=== PATIENT | female | born 1955 | race Caucasian/White ===

== ENCOUNTER 2016-09-06 12:30 | Observation (INO) | payer BC ==
--- NOTE | 2016-09-06 17:32 | PREOPERATIVE H&P ---
History of Present Illness (Issac Stapleton M.D.; 09/06/2016 2:15 PM) The patient is a 60 year old female who presents with a complaint of bleeding. The onset of the bleeding has been sudden and has been occurring in a recurrent (had episode about 7 years ago, D&C and polypectomy at that time) pattern for 3 days. The course has been decreasing. The bleeding is described as moderate ( heavy the first day then tapered). The bleeding is described as being located in the vagina. The bleeding was precipitated by nothing (spontaneous). The symptoms have been associated with cramps, while the symptoms have not been associated with hematemesis, hemoptysis, use of anti-coagulants or use of aspirin. The patient has been using herbal remedies, while she denies the use of hormone replacement therapy or Tamoxifen. Previous diagnostic tests have included PAP smear (18 months ago, normal) and biopsy (consistent with recurrent endometrial polyp). Additional reasons for visit: Preop Visit is described as the following: The patient feels well with no complaints. Surgical procedures include: TVH with BSO. The reason for surgery is postmenopausal bleeding (secondary to recurrent endometrial polyp). Date of procedure: (09/12/2016). Planned anesthesia : general anesthesia. Previous problems related to surgery includes: vomiting. Cardiac risk factors include: female gender over age 55. Risk factors for post operative thromboembolism includes: age > 50. In depth conversation with the patient/guardian concerning the procedure, risks, complications, benefits, alternatives and need for further surgery or intervention questions were answered and no guarantees were made. Problem List/Past Medical (Issac Stapleton M.D.; 09/06/2016 2:15 PM) Chronic sinusitis (J32.9) GERD (gastroesophageal reflux disease) (K21.9) Allergies (Issac Stapleton M.D.; 09/06/2016 2:16 PM) Betadine *ANTISEPTICS & DISINFECTANTS* Rash. Codeine/Codeine Derivatives (Tylenol 3, Vicodin, Percocet, Hydrocodone...) Hallucinations, but can take Percocet Scopolamine Base *ANTIEMETICS* Sulfa Drugs (Bactrim, Pediazole, Septra...) Hives. Vancomycin HCl *ANTI-INFECTIVE AGENTS - MISC.* Itching. Family History (Issac Stapleton M.D.; 09/06/2016 2:16 PM) Alcohol Abuse Brother, Maternal Grandfather. Anxiety Disorder Daughter. Asthma Paternal Grandfather. Breast Cancer Paternal Aunt. Cataract Maternal Grandmother. Cerebrovascular Accident Father. Congestive Heart Failure Maternal Grandmother, Maternal Uncle. Depression Daughter. Diabetes Mellitus Type II Maternal Uncle, Paternal Grandfather. Hypertension Brother. Injury brain, traumatic (S06.9X9A) Daughter. Age 12-Ice skating accident Lung Cancer Mother. Lymphoid Leukemia, Acute Maternal Grandfather. Osteoporosis (M81.0) Paternal Grandmother. Peptic Ulcer Disease Paternal Grandfather. Postural orthostatic tachycardia syndrome (R00.0) Daughter. Scoliosis (M41.9) Daughter. Substance Abuse Brother. Social History (Issac Stapleton M.D.; 09/06/2016 2:16 PM) Alcohol use Occasional alcohol use. 1 drink per day Current work status Full-time. Marital status . Ray No Drug Use Number of Children 1. Vaginal 1994 Tobacco use Never smoker. Medication History (Issac Stapleton M.D.; 09/06/2016 2:16 PM) Prevacid (15MG Capsule DR, 1 Oral daily) Active. Pulmicort (0.5MG/2ML Suspension, 2 Inhalation two times daily) Active. (nasal inhalation) Turmeric Curcumin (Oral daily) Active. Multi-Day (1 Oral daily) Active. Ibuprofen (200MG Capsule, Oral as needed) Active. Medications Reconciled / History (Issac Stapleton M.D.; 09/06/2016 2:16 PM) Deliveries (Parity) 1 Delivery Mode vaginal Maternal complications None. Pregnancies () 1 Past Surgical History (Issac Stapleton M.D.; 09/06/2016 2:16 PM) ACHILLES TENDON REPAIR (40220) x2 DECOMPRESSION, SHOULDER, ARTHROSCOPIC (71527) left Dilation and Curettage of Uterus with polypectomy EXCISION, TONSIL, LINGUAL (77489) EXPLORATION, PELVIS, LAPAROSCOPIC (80242) x2 for infertility RELEASE, TENDON, ELBOW (74362) right Review of Systems (Issac Stapleton M.D.; 09/06/2016 2:15 PM) General Not Present- Night Sweats. Skin Not Present- Rash. HEENT Present- Corrective lenses. Neck Not Present- Neck Mass. Respiratory Not Present- Hemoptysis. Breast Not Present- Breast Mass, Breast Pain, Nipple Discharge and Skin Changes. Cardiovascular Not Present- Chest Pain and Decreased Exercise Tolerance. Gastrointestinal Not Present- Abdominal Pain, Bloating, Bloody Stool and Change in Bowel Habits. Female Genitourinary Not Present- Dysuria, Frequency, Hematuria, Incontinence, Urgency, Vaginal Discharge, vaginal dryness, Vaginal itching and Vulvar itching. Musculoskeletal Not Present- Joint Redness. Neurological Not Present- Focal Neurological Symptoms. Psychiatric Not Present- Mood changes. Endocrine Not Present- Hot flashes. Hematology Not Present- DVT, Enlarged Lymph Nodes and Spontaneous Bleeding. Vitals (Kalyn Rivas RN; 09/06/2016 1:50 PM) 09/06/2016 1:49 PM Weight: 165 lb Height: 62in Body Surface Area: 1.76 m Body Mass Index: 30.18 kg/m Temp.: 98.3F Pulse: 83 (Regular) Resp.: 16 (Unlabored) P.OX: 95% ( Room air) BP: 138/78 (Sitting, Left Arm, Standard) Physical Exam (Issac Stapleton M.D.; 09/06/2016 3:48 PM) General General Appearance-Well Appearing. Build & Nutrition-overweight. Integumentary Integumentary General Characteristics Overall examination of the patient's skin reveals - no rashes. Head and Neck Neck Global Assessment - full range of motion, No lymphadenopathy. Thyroid Gland Characteristics - normal size and consistency and no palpable nodules. [facility] Mouth and Throat Oral Cavity/Oropharynx - Oropharynx - no evidence of airway distress observed. Chest and Lung Exam Chest and lung exam reveals -Clear and quiet, even and easy respiratory effort with no use of accessory muscles. Cardiovascular Cardiovascular examination reveals -normal heart sounds, regular rate and rhythm with no murmurs. Abdomen Inspection Inspection of the abdomen reveals - No Hernias. Palpation/Percussion Palpation and Percussion of the abdomen reveal - Non Tender, No hepatosplenomegaly and No Palpable abdominal masses. Other Characteristics - No Costovertebral angle tenderness - Left, No Costovertebral angle tenderness - Right. Female Genitourinary External Genitalia Vulva - Normal. Labia Majora - Normal. Perineum - Intact. Clitoris - Normal. Labia Minora - Normal. Bartholin's Gland - Bilateral - Normal. Urethra - Characteristics - Normal. Urethral Meatus - Characteristics - No Urethral Caruncle. Discharge - None. Othello Gland - Bilateral - Normal. Speculum & Bimanual Vagina - Vaginal Wall - Normal. Vaginal Mucosa - Pale and Relaxation, No Leukorrhea, No Rugae. Cervix - Characteristics - Parous. Uterus - Characteristics - Non Tender. Position - Retroverted. Adnexa - Characteristics - Bilateral - Non Tender, Ovary not enlarged. Masses - No Adnexal Masses. Bladder - Normal. Conference Concierge-present for exam . Peripheral Vascular Lower Extremity Palpation - Tenderness - Bilateral - Non Tender. Edema - Bilateral - No edema. Neuropsychiatric Mental status exam performed with findings of-Oriented X3 with appropriate mood and affect. Lymphatic Axillary Supraclavicular Nodes: Bilateral - Supraclavicular Lymph Nodes - No supraclavicular lymphadenopathy. 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 (09/06/2016 3:49 PM) KRISHD
[2016-09-12] MEDS ORDERED: CEFOXITIN SODIUM 1 GM in NORMAL SALINE MINI-BAG+ 100 ML IV ONE ×3 (06:28→08:46)
[2016-09-12] MEDS: LIDOCAINE HCL 1% 20 ML VIAL SUBCUT ONE ×2 (06:35→19:31)
[2016-09-12] MEDS ORDERED: ACETAMINOPHEN 1,000 MG/100 ML VIAL IV SCH ×2 (06:45→06:53)
[2016-09-12] MEDS ORDERED: METOCLOPRAMIDE HCL 10 MG/2 ML VIAL IV ONE ×2 (06:48→06:53)
[2016-09-12] MEDS ORDERED: MIDAZOLAM HCL 2 MG/2 ML SYR IV ONE ×2 (06:48→06:53)
[2016-09-12] MEDS ORDERED: LIDOCAINE HCL 1% 20 ML VIAL SUBCUT ONE ×2 (06:53→08:46)
[2016-09-12] MEDS ORDERED: METHYLENE BLUE 10 MG/ML VIAL IV ONE (06:58)
[2016-09-12] MEDS ORDERED: FAMOTIDINE IN SALINE, ISO-OSM 20 MG/50 ML PIGGYBACK IV SCH (07:00)
[2016-09-12] MEDS ORDERED: LACTATED RINGERS 1,000 ML IV SCH ×5 (07:00→09:00)
[2016-09-12] MEDS ORDERED: MIDAZOLAM HCL 2 MG/2 ML VIAL ONE (07:02)
[2016-09-12] MEDS ORDERED: CEFOXITIN SODIUM 1 GM/10 ML VIAL ONE (07:03)
[2016-09-12] MEDS ORDERED: LIDOCAINE HCL 1% 20 ML VIAL ONE (07:18)
[2016-09-12] MEDS ORDERED: FENTANYL 100 MCG/2 ML VIAL ONE (07:18)
[2016-09-12] MEDS ORDERED: ROCURONIUM BROMIDE 50 MG/5 ML VIAL IV ONE (07:18)
[2016-09-12] MEDS ORDERED: SUCCINYLCHOLINE CHLORIDE 200 MG/10 ML VIAL ONE (07:18)
[2016-09-12] MEDS ORDERED: MORPHINE SULFATE/PF 10 MG/10 ML VIAL ONE (07:19)
[2016-09-12] MEDS ORDERED: ONDANSETRON HCL 4 MG/2 ML VIAL IV PRN ×3 (08:42→09:31)
[2016-09-12] MEDS ORDERED: FENTANYL 100 MCG/2 ML VIAL IV PRN ×2 (08:42→08:46)
[2016-09-12] MEDS ORDERED: MORPHINE SULFATE 10 MG/ML SYR IV PRN ×2 (08:42→08:46)
[2016-09-12] MEDS ORDERED: NALOXONE HCL 0.4 MG/ML VIAL IV PRN ×12 (08:42→09:31)
[2016-09-12] MEDS ORDERED: DIPHENHYDRAMINE 25 MG CAPSULE PO PRN ×4 (08:42→09:31)
[2016-09-12] MEDS ORDERED: DIPHENHYDRAMINE 50 MG/ML VIAL IV PRN ×4 (08:42→09:31)
[2016-09-12] MEDS ORDERED: NALBUPHINE HCL 10 MG/ML AMP IV PRN ×5 (08:42→09:31)
[2016-09-12] MEDS ORDERED: KETOROLAC TROMETHAMINE 30 MG/ML VIAL IV ONE ×2 (08:42→08:46)
[2016-09-12] MEDS ORDERED: DEXAMETHASONE 4 MG/ML VIAL ONE (08:56)
[2016-09-12] MEDS ORDERED: SUGAMMADEX SODIUM 200 MG/2 ML VIAL IV ONE (08:56)
--- NOTE | 2016-09-12 09:05 | PROCEDURE NOTE: GYN ---
HEAD ESTHETICIAN Procedure - Brief Operative Note Date of procedure: 09/12/16 Pre-Op Diagnosis: Endometrial polyp, postmenopausal bleeding Post-op diagnosis: same Procedure: TVH with bilateral salpingectomy Findings: Atrophic ovaries, adherrant to pelvic side doll, normal size uterus. Anesthesia Type: General Estimated Blood Loss: 100 Pathology: sent Sponge and instrument counts: correct Condition: stable Disposition: PACU Narrative: After placement of a spinal narcotic block in the pre-op area the patient is taken to the operating theater and placed supine on the operating table. General endotracheal anesthesia was induced. She is placed in dorsal lithotomy position using Jose stirrups. Vagina and perineum are prepped, her bladder is drained, and then stained with indigo carmine dye. The patient is draped in the usual sterile fashion. The cervix is visualized and grasped with a double- tooth tenaculum. The vagina was incised circumferentially around the cervix. Using sharp and blunt dissection the anterior peritoneal reflection was identified and entered into sharply. A long retractor is then entered into this incision and the bladder is elevated. Posterior cul-de-sac was then entered into sharply and a long weighted retractor is entered into this incision. The uterosacral ligaments on both left and right sides are clamped cut and tied in a Victoriano fashion with 0 Vicryl sutures and tagged. Cardinal ligaments on both left and right sides are then clamped cut and ligated in Victoriano fashion with 0 Vicryl sutures. Uterine vessels on both left and right sides were then clamped cut and ligated in Victoriano fashion with 0 Vicryl sutures. The lower section of the broad ligament on both left and right sides are clamped cut and ligated in Victoriano fashion with 0 Vicryl sutures. Uterus is delivered posteriorly and the utero-ovarian round ligament complex on left right sides are clamped cut and ligated in Victoriano fashion with 0 Vicryl sutures. The uterus and cervix are removed and submitted to pathology. The left fallopian tube was mobilized and then the mesosalpinx is clamped cut and ligated in Victoriano fashion with 0 Vicryl sutures. The fallopian tube is submitted to pathology. The right fallopian tube is mobilized and the right mesosalpinx was clamped cut and ligated in Victoriano fashion with 0 Vicryl sutures. The fallopian tube is submitted to pathology. The posterior vaginal cuff was closed with a running interlocking 0 Vicryl suture. After assuring excellent hemostasis of all vascular pedicles the uterosacral ligament tags were attached to the lateral vaginal cuff, the anterior peritoneal reflection and exited the posterior cuff in the midline. The vaginal cuff is closed with multiple figure of eight 0-Vicryl sutures. The uterosacral ligament tags are tied in the midline with excellent support of the vaginal cuff. A Villa catheter is placed to down drain, the patient placed supine on the operating table, awakened by anesthesia and taken to PACU.
[2016-09-12] MEDS ORDERED: ZOLPIDEM TARTRATE 5 MG TABLET PO PRN (09:31)
[2016-09-12] MEDS ORDERED: SIMETHICONE CHEW 80 MG TABLET PO PRN (09:31)
[2016-09-12] MEDS: KETOROLAC TROMETHAMINE 30 MG/ML VIAL IV PRN ×2 (09:40→10:28)
[2016-09-12] MEDS ORDERED: NORMAL SALINE FLUSH 10 ML ONE (09:45)
[2016-09-12] MEDS ORDERED: NORMAL SALINE FLUSH 40 ML ONE (09:48)
[2016-09-12] MEDS: POTASSIUM CHLORIDE/D5 0.45%NAC 1,000 ML IV SCH ×2 (12:05→19:46)
--- NOTE | 2016-09-12 17:51 | PROGRESS NOTE: GYN Post-op ---
Assessment and Plan - Date of Encounter Date of Encounter: 09/12/16 (1) S/P gynecological surgery, follow-up exam Problem details: S/P TVH Status: Acute Assessment and plan: Plan routine care. 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 Post-op Day: 0 Patient reports: pain well controlled, flatus FOREIGN EXCHANGE SERVICES MANAGER: Post-op Note Objective - Latest Vital Signs and I&O Latest Vital Signs/I&O: Vital Signs Temp 97.3 C H 09/12/16 10:46 Pulse 81 09/12/16 10:46 Resp 16 09/12/16 10:46 BP 136/74 09/12/16 10:46 Pulse Ox 97 09/12/16 10:46 Intake & Output 09/11/16 09/12/16 09/12/16 17:59 05:59 17:59 Intake Total 150 Balance 150 Weight 72.575 kg Intake: IV 50 Right Wrist 50 Oral 100 Other: Urine Color Uretheral (Villa) Indigo - Exam Lungs: Bilateral: normal Heart Rhythm: Present: regular Extremities: Absent: tenderness Abdomen: Present: soft Bowel sounds: present
[2016-09-12] MEDS: DOCUSATE SODIUM 100 MG CAPSULE PO SCH (20:05)
[2016-09-12] MEDS ORDERED: BUDESONIDE 0.5 MG/2 ML NEB INHALATION SCH (21:00)
[2016-09-13] MEDS: POTASSIUM CHLORIDE/D5 0.45%NAC 1,000 ML IV SCH (03:27)
[2016-09-13] MEDS ORDERED: ACETAMINOPHEN 325 MG TABLET PO PRN (03:39)
[2016-09-13 05:03] VITALS: BP 103/54; PULSE 76; RESP 14; TEMP 98.6; O2SAT 96
[2016-09-13 05:56] LABS: BASOPHILS 0.3 % (0.0-2.0); EOSINOPHILS 0.1 % (0.0-6.0); HEMATOCRIT 40.8 % (36.0-48.0); HEMOGLOBIN 13.4 g/dL (12.0-16.0); LYMPHOCYTES 19.4 % (20.0-40.0); LYMPHOCYTES# 2.5 X 10^3uL (0.8-3.8); MEAN CELL VOLUME 88.8 fL (84.0-102.0); MEAN CORPUS. HGB CONCENTRATION 32.9 g/dL (32.0-36.0); MEAN CORPUSCULAR HEMOGLOBIN 29.2 pg (29.0-35.0); MEAN PLATELET VOLUME 9.2 fL (7.4-10.4); MONOCYTES 7.9 % (2.0-10.0); NEUTROPHILS 72.3 % (54.0-75.0); NEUTROPHILS# 9.3 X 10^3uL (2.6-6.7); PLATELET COUNT 281 X 10^3uL (130-440); RED CELL DISTRIBUTION WIDTH 12.7 % (11.5-14.5); WHITE BLOOD COUNT 12.8 X 10^3uL (3.9-10.7)
[2016-09-13 06:05] LABS: BLOOD UREA NITROGEN 10 mg/dL (7-17); CALCIUM 8.3 mg/dL (8.4-10.2); CHLORIDE 110 mmol/L (98-107); CREATININE 0.7 mg/dL (0.5-1.0); EST GLOMERULAR FILTRATION RATE > 60 mL/min; GLUCOSE 91 mg/dL (70-100); POTASSIUM 4.2 mmol/L (3.5-5.1); SODIUM 140 mmol/L (137-145)
[2016-09-13] MEDS ORDERED: PANTOPRAZOLE 40 MG TABLET PO SCH (06:30)
--- NOTE | 2016-09-13 08:10 | DC SUMMARY: Obstetrical/GYN ---
Discharge Summary: Surg/OB Provider: Date of Admission: 09/12/16 Admitting Provider: LANDRY STAPLETON MD Attending Provider: LANDRY STAPLETON MD Discharging Provider: LANDRY STAPLETON MD Primary Care Provider: Discharge Date: 09/13/16 - Diagnosis (1) S/P gynecological surgery, follow-up exam Status: Acute Hospital Course: Ms. ARIAS is a 60 year old female admitted for TVH for recurrent endometrial polyp and postmenopausal bleeding. Her surgery was without complication and she had good return of bowel and bladder function. On postoperative day 1 she had met all criteria and was discharged to home in good condition. Discharge - Patient/Caregiver Discharge Instructions Activity Level: Abdominal and pelvic rest Diet: Regular Additional Instructions: Landry Stapleton M.D. [address] [place] [address] PHONE [phone] FAX [phone] Reviewed 12/2014 Post Hysterectomy and/or Vaginal Repair 1. Please make an appointment for your first post operative check up to see me one week from the date of surgery. Your second post operative appointment should be made six weeks from the date of your surgery. Call the clinic to make these appointments. Do not hesitate to call me, or my nurse, with any questions or problems. 2. Get plenty of rest. You will tire more easily than you might expect. It would be best for you to restrict your activities until after your first post operative visit. As you feel up to it, you may increase your activity. Use your own judgment, listen to your body, and take frequent short rests as you become tired. Your restrictions will probably be lifted after your second post operative visit. 3. You will receive a prescription for pain pills upon hospital discharge. I recommend you alternate these with ibuprofen. If needed, take as directed. Contact me if strength is inadequate. Do not drive a car or operate machinery as long as you are taking narcotic pain medication. 4. No heavy lifting or straining. Do not lift anything more than 20 pounds. 5. You may climb stairs but try to make the trip worthwhile. Do not walk up and down excessively. 6. Take only showers for the first two weeks. Sitz baths may be taken to help relieve perineal discomfort. Baths may be taken after two weeks if desired. 7. You may have vaginal spotting for approximately four to six weeks. There may be an odor or you may pass suture material. Use mini or maxi pads. The bleeding should not be heavier than a normal period. Report any bleeding heavier than a period to me immediately. 8. Bleeding may be heavier after activity. If your bleeding does not slow down after resting, please notify me immediately. 9. No pelvic activity. No tampons, douching or intercourse. 10. If bladder surgery was performed, it may take days or even weeks for your bladder to perform adequately. You may go home with a bladder catheter which will be removed the week after surgery. Do not go longer than four hours without voiding during the day time. 11. If you feel constipated, use Milk of Magnesia at bedtime. 12. Eat a well-balanced diet. You should drink 6-8 glasses of fluid per day. Fresh fruits, green leafy vegetables, bran cereals and whole wheat breads should be eaten to prevent constipation. If necessary, stool softeners may be obtained at the pharmacy without a prescription. Use as directed. 13. Report any vomiting or fever above 100.5 degrees immediately. 14. I can be reached through the hospital nursing station ([phone]), Charge Nurse ([phone]) or Hospital Launch Check Out ([phone]). Landry Stapleton M.D. Follow up: LANDRY STAPLETON MD [ACTIVE (Staff Physician)] - 09/20/16 3:00 pm Overall discharge status: stable Home Medications: oxyCODONE HCL/ACETAMINOPHEN [Percocet 5-325 mg Tablet] 1 each PO Q4H PRN #30 tablet PRN Reason: Pain, Severe Disposition: HOME, SELF-CARE Obstetrical/INSPECTOR CRYSTAL Discharge Exam - Latest Vital Signs and I&O Latest Vital Signs/I&O: Vital Signs Temp 37.0 C 09/13/16 05:00 Pulse 76 09/13/16 05:00 Resp 14 09/13/16 05:00 BP 103/54 09/13/16 05:00 Pulse Ox 96 09/13/16 05:00 Intake & Output 09/12/16 09/13/16 09/13/16 17:59 05:59 17:59 Intake Total 2299 1719 Output Total 400 2350 Balance 1899 -631 Weight 72.575 kg Intake: IV 1099 1129 Right Wrist 1099 1129 Oral 1200 590 Output: Urine 400 2350 Other: Urine Appearance Clear Clear Urine Color Indigo Yellow Uretheral (Villa) Indigo Voiding Method Indwelling Catheter Indwelling Catheter # Bowel Movements 0 - Exam Lungs: Bilateral: normal Heart Rhythm: Present: regular Extremities: Absent: tenderness Abdomen: Present: soft Bowel sounds: present Discharge Summary Data - Medication History Medication History: Home Medications Budesonide [Pulmicort Neb*] 2 vial NEB BID 09/12/16 Cholecalciferol [Vitamin D3] 400 unit PO DAILY 09/12/16 Guaifenesin [Mucus Relief] 400 mg PO DAILY 09/12/16 Ibuprofen [Ibuprofen*] 400 mg PO QID PRN 09/12/16 Lansoprazole [Prevacid] 30 mg PO DAILY 09/12/16 Multivitamins,Therapeutic [Thera Multivitamin*] 1 tab PO DAILY 09/12/16 Turmeric Root Extract [Turmeric] 1,000 mg PO DAILY 09/12/16 Inpatient Medications 09/12/16 09:31 Diphenhydramine [Benadryl Inj] 25 mg IV Q4H PRN Diphenhydramine [Benadryl] 25 mg PO Q4H PRN Ketorolac Tromethamine [Toradol] 30 mg IV Q6H PRN Nalbuphine HCl [Nubain] 2.5 mg IV Q15M PRN Naloxone HCl [Narcan] 0.05 mg IV Q5M PRN Naloxone HCl [Narcan] 0.1 mg IV Q5M PRN Naloxone HCl [Narcan] 0.2 mg IV Q5M PRN Ondansetron HCl [Zofran] 4 mg IV Q6H PRN Simethicone Chew [Mylicon] 80 mg PO Q4H PRN Zolpidem Tartrate [Ambien] 5 mg PO HS PRN oxyCODONE HCL IR [Oxy Ir] 5 mg PO Q3H PRN 09/12/16 10:00 Potassium Chloride/D5 0.45%Nac [KCl 20 Meq in D5w-1/2 Ns] 1,000 ml IV CONT 09/12/16 21:00 Docusate Sodium [Colace] 100 mg PO BID 09/13/16 03:39 Acetaminophen [Tylenol] 650 mg PO Q6H PRN 09/13/16 06:30 Pantoprazole [Protonix] 40 mg PO BEFORE BREAKFAST 09/13/16 09:00 Budesonide [Pulmicort Neb] 1 mg INHALATION BID Guaifenesin Soln [Robitussin Soln] 400 mg PO DAILY Procedures and tests throughout hospitalization: Completed Lab Orders 09/13/16 05:35 BASIC METABOLIC PANEL [CHEM] AMDRAW CBC AUTO DIF, MDIF/RMOR IF IND [HEM] AMDRAW Pending Orders 09/07/16 13:01 Resuscitation Status Routine 09/12/16 06:28 Pre-op by anesthesia . Sequential Compression Device WHILE IN BED 09/12/16 08:42 Sukhjinder hugger if temp <34 C PRN Did pt have a spinal/epidural? . Maintain IV access post spinal CONTINUOUS Monitor End Tidal CO2 CONTINUOUS Narcan @ bedside x24h after sp .x24hrs Oxygen by Nasal Cannula TITRATE TO >90% Titrate Oxygen TITRATE B/W 90-95% Vital Signs Q1HX12,Q2H Warm blankets if temp<36 C PRN 09/12/16 08:46 Maintain IV access post spinal CONTINUOUS Narcan @ bedside x24h after sp .x24hrs Oxygen by Nasal Cannula TITRATE TO >90% 09/12/16 09:31 Admit: Observation Routine Activity: Dangle at Bedside DANGLE 4H AFTER PACU Dressing Change PRN Incentive Spirometry Q1H Intake and Output QSHIFT I&O K Pad PRN Notify Physician PRN Teach: Post Hysterectomy &/or . Turn, Cough, and Deep Breathe Q1H Vital Signs Q15MX4,Q30MX2,Q1HX2,Q4H Diphenhydramine [Benadryl Inj] 25 mg IV Q4H PRN Diphenhydramine [Benadryl] 25 mg PO Q4H PRN Ketorolac Tromethamine [Toradol] 30 mg IV Q6H PRN Nalbuphine HCl [Nubain] 2.5 mg IV Q15M PRN Naloxone HCl [Narcan] 0.05 mg IV Q5M PRN Naloxone HCl [Narcan] 0.1 mg IV Q5M PRN Naloxone HCl [Narcan] 0.2 mg IV Q5M PRN Ondansetron HCl [Zofran] 4 mg IV Q6H PRN Simethicone Chew [Mylicon] 80 mg PO Q4H PRN Zolpidem Tartrate [Ambien] 5 mg PO HS PRN oxyCODONE HCL IR [Oxy Ir] 5 mg PO Q3H PRN 09/12/16 10:00 Potassium Chloride/D5 0.45%Nac [KCl 20 Meq in D5w-07/24 Ns] 1,000 ml IV CONT 09/12/16 21:00 Docusate Sodium [Colace] 100 mg PO BID 09/12/16 Dinner Regular [DIET] 09/13/16 03:39 Acetaminophen [Tylenol] 650 mg PO Q6H PRN 09/13/16 06:30 Pantoprazole [Protonix] 40 mg PO BEFORE BREAKFAST 09/13/16 09:00 Dressing Change POD #1 May shower with wound uncovere POD #1 Remove urinary catheter POD #1 Budesonide [Pulmicort Neb] 1 mg INHALATION BID Guaifenesin Soln [Robitussin Soln] 400 mg PO DAILY 09/13/16 09:07 Activity: Ambulate with Assist TID Labs on day of discharge: Labs from last 24 hours 09/13/16 05:35 WBC 12.8 H RBC 4.60 Hgb 13.4 Hct 40.8 MCV 88.8 MCH 29.2 MCHC 32.9 RDW 12.7 Plt Count 281 MPV 9.2 Neutrophils % 72.3 Lymphocytes % 19.4 L Eosinophils % 0.1 Basophils % 0.3 Neutrophils # 9.3 H Lymphocytes # 2.5 Monocytes 7.9 Monocytes # 1.0 Eosinophils # 0.0 Basophils # 0.0 Sodium 140 Potassium 4.2 Chloride 110 H Carbon Dioxide 26 BUN 10 D Creatinine 0.7 GFR Calculation > 60 Glucose 91 Calcium 8.3 L
[2016-09-13] MEDS: DOCUSATE SODIUM 100 MG CAPSULE PO SCH (08:57)
[2016-09-13] MEDS ORDERED: BUDESONIDE 0.5 MG/2 ML NEB INHALATION SCH (09:00)
[2016-09-13] MEDS ORDERED: GUAIFENESIN 200 MG/10 ML PO SCH (09:00)
[2016-09-13] MEDS ORDERED: WATER IRRIG 1,000 ML BOTTLE ONE (09:32)
== END 2016-09-13 08:10 | disposition home or self-care (01) ==
LOC: INTOOBSV 09-12 06:03 → IN 09-12 06:03
PROVIDERS: ADMIT Obstetrics & Gynecology; ATTEND Obstetrics & Gynecology
PROC: 0UT97ZZ Resection of Uterus, Via Natural or Artificial Opening (ICD-10-PCS; principal; 2016-09-12)
PROC: 0UT77ZZ Resection of Bilateral Fallopian Tubes, Via Natural or Artificial Opening (ICD-10-PCS; principal; 2016-09-12)
DX: N85.01 Benign endometrial hyperplasia (principal); N84.0 Polyp of corpus uteri; N95.0 Postmenopausal bleeding; J32.9 Chronic sinusitis, unspecified; K21.9 Gastro-esophageal reflux disease without esophagitis; Z79.899 Other long term (current) drug therapy
CPT/HCPCS: 36415; 80048; 85025; A4217; G0378; G0379; J0694; J1200; J1885; J2250; J2300; J2405; J3480; Q0163